=== PATIENT | male | born 1975 | race Hispanic/Latino ===

== ENCOUNTER 2016-07-29 21:51 | Emergency (ER) | payer OTHER ==
[~2016-07-29] VITALS: Ht 172.7 cm; Wt 101.9 kg
[2016-07-29 22:21] LABS: HEMATOCRIT 40.1 % (38.0-50.0); MCH 29.4 PG (29.0-34.0); MCHC 33.9 G/DL (30.0-36.0); MCV 86.6 FL (86-99); MEAN PLAT.VOLUME 10.3 uM^3 (9.0-12.4); PLATELET COUNT 236 K/uL (156-360); RBC DIS.WIDTH-SD 40.4 % (39-53); RED BLOOD COUNT 4.63 M/uL (4.00-5.50); WHITE BLOOD COUNT 5.9 K/uL (4.1-10.2)
[2016-07-29 22:33] LABS: CHLORIDE 108 mEq/L (99-109); POTASSIUM 3.8 mEq/L (3.7-5.4); SODIUM 141 mEq/L (136-147)
[2016-07-29 22:35] LABS: GLUCOSE 140 mg/dL (70-99)
[2016-07-29 22:37] LABS: ANION GAP 8 MEQ/L (2-14); TOTAL BILIRUBIN 0.3 mg/dL (0.0-1.0)
[2016-07-29 22:39] LABS: ALKALINE PHOSPHATASE 66 IU/L (3-129)
[2016-07-29 22:40] LABS: UREA NITROGEN (BUN) 7 mg/dL (9-23)
[2016-07-29 22:41] LABS: GFR ESTIMATE (CALCULATED) > 59 mL/min/
[2016-07-29 22:42] LABS: LIPASE 27 U/L (1.0-51.0)
[2016-07-30 03:25] VITALS: BP 137/96
== END 2016-07-30 03:17 ==
LOC: EME 21:51 → EDSEX 21:51 → EME 07-30 03:17
PROVIDERS: Emergency Medicine
DX: R10.9 Unspecified abdominal pain (principal); Z87.891 Personal history of nicotine dependence
CPT/HCPCS: 74177; 80053; 81003; 83605; 83690; 85027; 93005; 99281; 99285; J2270; J2405